=== PATIENT | female | born 1945 | race Caucasian/White ===

== ENCOUNTER → 2022-05-18 | Outpatient (CLI) | payer MEDICARE, OTHER, SELFPAY ==
--- NOTE | 2022-05-18 12:43 | RAD_ITS ---
HISTORY: NECK PAIN. TECHNIQUE: XR Spine Cervical 2 or 3 Views. COMPARISON: None. FINDINGS: VERTEBRAE: Vertebral body heights maintained. No acute fracture identified. ALIGNMENT: No significant anterior or posterior subluxation. Straightening of the cervical lordosis. INTERVERTEBRAL DISCS: Mild intervertebral disc space narrowing with endplate changes and osteophytes of C5-6 and C6-7. SOFT TISSUES: No significant prevertebral soft tissue swelling. RAD/Cerv Spine 2 or 3 Views IMPRESSION: No acute fracture or dislocation identified in the cervical spine. Mild degenerative change. Electronically Signed: Della Jonas MD at 10:19 EST ,
== END | disposition home or self-care (01) ==
PROVIDERS: PCP Family Medicine; Visit Provider Anesthesiology Pain Medicine
DX: M50.30 Other cervical disc degeneration, unspecified cervical region (principal); M47.899 Other spondylosis, site unspecified
CPT/HCPCS: 72040